=== PATIENT | male | born 1995 | race Caucasian/White ===

== ENCOUNTER 2018-01-19 20:43 | Emergency (ER) | payer OTHER ==
[~2018-01-19] VITALS: Ht 165.1 cm; Wt 86.4 kg
[2018-01-19 21:30] VITALS: BP 149/87
[2018-01-19] MEDS ORDERED: PredniSONE 20 MG TABLET PO ONE (21:45)
[2018-01-19] MEDS ORDERED: DiphenhydrAMINE HCL 25 MG CAPSULE PO ONE (21:45)
== END 2018-01-19 22:00 | disposition home or self-care (01) ==
LOC: EMS 20:45
DX: L50.9 Urticaria, unspecified (principal)
CPT/HCPCS: 99283; J7512

== ENCOUNTER 2018-03-24 21:10 | Emergency (ER) | payer OTHER ==
[~2018-03-24] VITALS: Ht 165.1 cm; Wt 84.1 kg
[2018-03-24] MEDS ORDERED: MethylPREDNISolone SOD SUCC 125 MG/2 ML VIAL IVP ONE (22:00)
[2018-03-24] MEDS ORDERED: DIPH50CA35 PO (22:00)
[2018-03-24] MEDS ORDERED: CETI-290 PO (22:01)
[2018-03-24 22:39] VITALS: BP 145/92
== END 2018-03-24 22:39 | disposition home or self-care (01) ==
LOC: EMS 21:13
DX: T78.40XA Allergy, unspecified, initial encounter (principal); Z79.899 Other long term (current) drug therapy; X58.XXXA Exposure to other specified factors, initial encounter
CPT/HCPCS: 96374; 99283; J2930